=== PATIENT | male | born 1965 | race Caucasian/White ===

== ENCOUNTER 2016-12-17 16:21 | Inpatient (IN) | payer SELFPAY ==
[~2016-12-17] VITALS: Ht 170.2 cm; Wt 78.9 kg
[2016-12-17] VITALS (9 sets, daily range): BP systolic 134–182; BP diastolic 71–112; PULSE 65–80; RESP 16–18; TEMP 98.3–98.5; O2SAT 95–100
[~2016-12-17 16:21] MED LIST: NIFE1TAB85 PO
[2016-12-17] MEDS ORDERED: LISI-515 PO (16:31)
[2016-12-17] MEDS ORDERED: ASPI325T PO (16:46)
--- NOTE | 2016-12-17 16:51 | PD ---
HPI Chief Complaint: Chest Pain Time Seen by Provider: 16:36 Travel History International Travel<30 days: No Contact w/Intl Traveler<30days: No Traveled to known affect area: No History of Present Illness HPI 51-year-old male complains of chest pain. Patient states that he started having sharp burning pain substernally for the past 5 days. Patient states that the pain radiated to the left-sided neck and left arm. Patient denies any coughing congestion fever chills. Patient states that he had diaphoresis this morning. Patient denies any palpitation. Patient denies any history of CAD. Patient has history hypertension. Patient is a smoker. Patient has family history of heart disease. Patient drinks alcohol frequently during the week. Patient denies any headache. Patient denies any abdominal pain. Patient denies any nausea vomiting diarrhea. Patient took aspirin 325 mg, 2 tablet today prior coming to the emergency room. On a scale of 1-10 the pain is a 7. PFSH Past Medical History Heart Rhythm Problems: No Cancer: No Cardiovascular Problems: Yes (HTN) Chest Pain: No Congestive Heart Failure: No Diabetes: No Endocrine: No Genitourinary: No Hepatitis: No Hiatal Hernia: No Hypertension: Yes Immune Disorder: No Musculoskeletal: No Neurologic: No Psychiatric: No Reproductive: No Respiratory: No Immunizations Current: No Thyroid Disease: No Tetanus Vaccination: > 5 Years Influenza Vaccination: No Past Surgical History AICD: No Joint Replacement: No Pacemaker: No Other Surgery: Yes (hand surgery , left finger fx) Social History Alcohol Use: Yes (1 QUART LIQUOR/WEEKLY) Tobacco Use: Yes (1 PPD) Substance Use: No Allergies-Medications (Allergen,Severity, Reaction): Coded Allergies: No Known Allergies (Verified , 12/17/16) Reported Meds & Prescriptions Reported Meds & Active Scripts Active Reported Aspirin 325 Mg Tab 650 Mg PO ONCE Lisinopril 20 Mg Tab 20 Mg PO DAILY Review of Systems General / Constitutional: No: Fever Eyes: No: Visual changes HENT: No: Headaches Cardiovascular: Positive: Chest Pain or Discomfort Respiratory: No: Shortness of Breath Gastrointestinal: No: Abdominal Pain Genitourinary: No: Dysuria Musculoskeletal: No: Pain Skin: No Rash Neurologic: No: Weakness Psychiatric: No: Depression Endocrine: No: Polydipsia Hematologic/Lymphatic: No: Easy Bruising Physical Exam Narrative GENERAL: Well-nourished, well-developed patient. SKIN: Focused skin assessment warm/dry. HEAD: Normocephalic. EYES: No scleral icterus. No injection or drainage. NECK: Supple, trachea midline. No JVD or lymphadenopathy. CARDIOVASCULAR: Regular rate and rhythm without murmurs, gallops, or rubs. RESPIRATORY: Breath sounds equal bilaterally. No accessory muscle use. GASTROINTESTINAL: Abdomen soft, non-tender, nondistended. MUSCULOSKELETAL: No cyanosis, or edema. BACK: Nontender without obvious deformity. No CVA tenderness. Neurologic exam normal. Data Data Last Documented VS Vital Signs Date Time Temp Pulse Resp B/P Pulse Ox O2 Delivery O2 Flow Rate FiO2 12/17/16 18:37 65 16 158/95 97 Room Air 12/17/16 16:27 98.3 Orders Complete Blood Count With Diff (12/17/16 16:44) Comprehensive Metabolic Panel (12/17/16 16:44) Creatine Kinase (Cpk) (12/17/16 16:44) Troponin I (12/17/16 16:44) Prothrombin Time / Inr (Pt) (12/17/16 16:44) Act Partial Throm Time (Ptt) (12/17/16 16:44) Chest, Single Ap (12/17/16 16:44) Iv Access Insert/Monitor (12/17/16 16:44) Ecg Monitoring (12/17/16 16:44) Oximetry (12/17/16 16:44) Ct Pulmonary Angiogram (12/17/16 16:44) Iohexol 350 Inj (Omnipaque 350 Inj) (12/17/16 18:27) Labs Laboratory Tests Test 12/17/16 16:45 White Blood Count 9.4 TH/MM3 Red Blood Count 4.82 MIL/MM3 Hemoglobin 15.5 GM/DL Hematocrit 46.4 % Mean Corpuscular Volume 96.1 FL Mean Corpuscular Hemoglobin 32.1 PG Mean Corpuscular Hemoglobin 33.4 % Concent Red Cell Distribution Width 13.5 % Platelet Count 222 TH/MM3 Mean Platelet Volume 8.4 FL Neutrophils (%) (Auto) 67.8 % Lymphocytes (%) (Auto) 21.9 % Monocytes (%) (Auto) 7.7 % Eosinophils (%) (Auto) 2.3 % Basophils (%) (Auto) 0.3 % Neutrophils # (Auto) 6.4 TH/MM3 Lymphocytes # (Auto) 2.1 TH/MM3 Monocytes # (Auto) 0.7 TH/MM3 Eosinophils # (Auto) 0.2 TH/MM3 Basophils # (Auto) 0.0 TH/MM3 CBC Comment DIFF FINAL Differential Comment Prothrombin Time 10.1 SEC Prothromb Time International 0.9 RATIO Ratio Activated Partial 25.9 SEC Thromboplast Time Sodium Level 144 MEQ/L Potassium Level 3.5 MEQ/L Chloride Level 107 MEQ/L Carbon Dioxide Level 27.4 MEQ/L Anion Gap 10 MEQ/L Blood Urea Nitrogen 13 MG/DL Creatinine 1.20 MG/DL Estimat Glomerular Filtration 64 ML/MIN Rate Random Glucose 106 MG/DL Calcium Level 8.7 MG/DL Total Bilirubin 0.3 MG/DL Aspartate Amino Transf 20 U/L (AST/SGOT) Alanine Aminotransferase 40 U/L (ALT/SGPT) Alkaline Phosphatase 85 U/L Total Creatine Kinase 116 U/L Troponin I 0.05 NG/ML Total Protein 7.6 GM/DL Albumin 3.7 GM/DL MDM Medical Decision Making Medical Screen Exam Complete: Yes Emergency Medical Condition: Yes Interpretation(s) 1846 PM. EKG shows sinus rhythm nonspecific ST-T wave change. Last Impressions Chest X-Ray 12/17/16 1644 Signed Impressions: Service Date/Time: Saturday, December 17, 2016 17:10 - CONCLUSION: 1. No acute cardiopulmonary findings. Junior Mcbride MD [address] pulmonary angiogram negative for PE. CBC within normal limit. CMP within normal limit. Cardiac enzymes are normal. Differential Diagnosis Differential diagnosis including musculoskeletal, angina, AL, PE, pneumothorax. Narrative Course 51-year-old male with chest pain. Patient took aspirin this morning. Patient will be admitted to the chest pain center at [facility]. Diagnosis Primary Impression: Chest pain Qualified Code: R07.9 - Chest pain, unspecified type Admitting Information Admitting Physician Requests: Observation Santi Tariq MD Dec 17, 2016 16:51
[2016-12-17 17:07] LABS: AUTOMATED NEUTROPHIL # 6.4 TH/MM3 (1.8-7.7); BASOPHIL % 0.3 % (0.0-2.0); EOSINOPHIL # 0.2 TH/MM3 (0-0.4); EOSINOPHIL % 2.3 % (0.0-4.0); HEMATOCRIT 46.4 % (39.0-51.0); HEMO FLAGS DIFF FINAL; LYMPH % 21.9 % (9.0-44.0); LYMPHOCYTE # 2.1 TH/MM3 (1.0-4.8); MEAN CELL VOLUME 96.1 FL (80.0-100.0); MEAN CORPUSCULAR HEMOGLOBIN 32.1 PG (27.0-34.0); MEAN CORPUSCULAR HGB CONC 33.4 % (32.0-36.0); MONO % 7.7 % (0.0-8.0); NEUT % 67.8 % (16.0-70.0); PLATELET COUNT 222 TH/MM3 (150-450); RED BLOOD COUNT 4.82 MIL/MM3 (4.50-5.90); RED CELL DISTRIBUTION WIDTH 13.5 % (11.6-17.2); WHITE BLOOD COUNT 9.4 TH/MM3 (4.0-11.0)
--- NOTE | 2016-12-17 17:20 | RADHPO ---
EXAM DATE/TIME: 12/17/2016 17:10 [facility] COMPARISON: CHEST SINGLE AP, January 19, 2016, 22:30. INDICATIONS : Chest pain. MEDICAL HISTORY : Hypertension. SURGICAL HISTORY : None. ENCOUNTER: Initial ACUITY: 1 week PAIN SCORE: 1/10 LOCATION: Bilateral chest FINDINGS: A single view of the chest demonstrates the lungs to be symmetrically aerated without evidence of mas s, infiltrate or effusion. The cardiomediastinal contours are unremarkable. Osseous structures are intact. CONCLUSION: 1. No acute cardiopulmonary findings. Junior Mcbride MD on December 17, 2016 at 17:18 Board Certified Radiologist. This report was verified electronically.
[2016-12-17 17:37] LABS: CHLORIDE 107 MEQ/L (98-107); POTASSIUM 3.5 MEQ/L (3.5-5.1); SODIUM (NA) 144 MEQ/L (136-145)
[2016-12-17 17:40] LABS: ANION GAP 10 MEQ/L (5-15); BICARBONATE 27.4 MEQ/L (21.0-32.0)
[2016-12-17 17:41] LABS: BLOOD UREA NITROGEN 13 MG/DL (7-18)
[2016-12-17 17:42] LABS: APTT (PATIENT) 25.9 SEC (24.3-30.1); INTERNATIONAL NORMALIZED RATIO 0.9 RATIO; PROTHROMBIN TIME - PATIENT 10.1 SEC (9.8-11.6)
[2016-12-17 17:43] LABS: ALT (GPT) 40 U/L (12-78); AST (GOT) 20 U/L (15-37)
[2016-12-17 17:44] LABS: GLOMERULAR FILTRATION RATE 64 ML/MIN (>89)
[2016-12-17 17:45] LABS: TOTAL BILIRUBIN ADULT 0.3 MG/DL (0.2-1.0)
[2016-12-17 17:46] LABS: ALKALINE PHOSPHATASE 85 U/L (45-117); CREATINE KINASE 116 U/L (39-308)
[2016-12-17] MEDS ORDERED: IOHEXOL 350 MG/ML 10 ML VIAL (for RAD DIAG) IV ONE (18:27)
--- NOTE | 2016-12-17 18:41 | RADHPO ---
EXAM DATE/TIME: 12/17/2016 18:07 [facility] COMPARISON: No previous studies available for comparison. INDICATIONS : Left sided chest pain. IV CONTRAST: 71 cc Omnipaque 350 (iohexol) IV RADIATION DOSE: 15.04 CTDIvol (mGy) MEDICAL HISTORY : Cardiovascular disease. SURGICAL HISTORY : None. ENCOUNTER: Initial ACUITY: 1 day PAIN SCALE: 5/10 LOCATION: Left chest TECHNIQUE: Volumetric scanning of the chest was performed using a pulmonary embolism protocol MIP images were re constructed. Using automated exposure control and adjustment of the mA and/or kV according to patien t size, radiation dose was kept as low as reasonably achievable to obtain optimal diagnostic quality images. FINDINGS: The lungs are clear without infiltrate, nodule, or mass except for slight bibasilar atelectasis. The re is no pleural effusion. No appreciable pathological adenopathy is seen within the mediastinum. Th ere is no evidence for PE for technique. CONCLUSION: There is no evidence for PE for technique. Alison Ma MD on December 17, 2016 at 18:38 Board Certified Radiologist. This report was verified electronically.
[2016-12-17] MEDS ORDERED: NITROGLYCERIN 0.4 MG SL 25 TABS/BTL SL PRN (19:00)
[2016-12-17] MEDS ORDERED: ACETAMINOPHEN 500 MG CPLT PO PRN (19:00)
[2016-12-17] MEDS ORDERED: SODIUM CHLORIDE 0.9% FLUSH 10 ML FLUSH IV FLUSH PRN ×2 (19:00→19:30)
[2016-12-17] MEDS ORDERED: ONDANSETRON HCL 4 MG/2 ML VIAL IV PRN (19:00)
[2016-12-17] MEDS ORDERED: hydrALAZINE HCL 20 MG/ML VIAL IV PUSH ONE (20:00)
[2016-12-17] MEDS ORDERED: SODIUM CHLORIDE 0.9% FLUSH 10 ML FLUSH IV FLUSH SCH (21:00)
[2016-12-17 21:09] LABS: CREATINE KINASE 144 U/L (39-308)
[2016-12-17 21:22] LABS: CKMB 2.4 NG/ML (0.5-3.6)
[2016-12-17] MEDS: SODIUM CHLORIDE 0.9% FLUSH 10 ML FLUSH SCH (21:38)
[2016-12-17] MEDS ORDERED: HEPARIN-D5W INJ 250 ML IV SCH (22:00)
[2016-12-17 23:24] LABS: APTT (PATIENT) 25.5 SEC (24.3-30.1)
[2016-12-17 23:30] LABS: CREATINE KINASE 105 U/L (39-308)
[2016-12-18] VITALS (17 sets, daily range): BP systolic 133–166; BP diastolic 77–101; PULSE 61–84; RESP 16–20; TEMP 97.5–98.6; O2SAT 97–100
[2016-12-18] MEDS ORDERED: HEPARIN SODIUM - IV 10,000 UNITS/10 ML VIAL IV PRN ×2 (04:00)
[2016-12-18] MEDS ORDERED: CHLORHEXIDINE GLUCONATE 2 % 1 PACK (2 CLOTHS)(extra cloths) TOPICAL PRN (04:30)
[2016-12-18] MEDS: CHLORHEXIDINE GLUCONATE 2 % 1 PACK (2 CLOTHS)(taper/protocol) TOPICAL SCH (05:00)
--- NOTE | 2016-12-18 05:37 | HHI.HP ---
[facility]Staff Admission Diagnosis chest pain Diagnoses: (1) Non-ST elevation VT (NSTEMI) Chief Complaint: chest pain Travel History International Travel<30 Days: No Contact w/Intl Traveler <30 Da: No Traveled to Known Affected Are: No History of Present Illness Mr. De La O is a 51 year-old male with a history of tobacco abuse and hypertension who presented to the ER on 12/17/16 for evaluation of chest pain. He was initially admitted to the chest pain center in [place] but was transferred to [facility] hospital following second set of Troponin I showed elevation at 0.84 with acute nonspecific inferior and anteroseptal T-wave changes on second EKG. CT pulmonary angiogram was negative for PE. CXR was negative, He is seen in the ICU. He reports that he has been experiencing worsening intermittently occurring substernal chest pain for the last 3-4 days radiating down left arm accompanied by diaphoresis. Symptoms not accompanied by shortness of breath or nausea. Pain is described as a sharp pain. Denies any heart problems, diabetes, breathing problems, liver problems, kidney problems, blood clots, thyroid problems, or cancers. Denies any recent fevers, dizziness, abdominal pain, n/v/d, burning or pain with urination, or hematuria. . Review of Systems Except as stated in HPI: all other systems reviewed are Neg Past Family Social History Past Medical History Hypertension Tobacco abuse . Past Surgical History Left index finger surgical repair s/p traumatic injury . Reported Medications Reported Meds & Active Scripts Active Reported Aspirin 325 Mg Tab 650 Mg PO ONCE Lisinopril 20 Mg Tab 20 Mg PO DAILY . Allergies: Coded Allergies: No Known Allergies (Verified , 12/17/16) Active Ordered Medications Current Medications Iohexol (Omnipaque 350 Inj) 71 ml STK-MED ONCE IV Last administered on t 18:27; Start 12/17/16 at 18:27; Stop 12/17/16 at 18:28; Status DC Sodium Chloride (NS Flush) 2 ml UNSCH PRN IV FLUSH FLUSH AFTER USING IV ACCESS ; Start 12/17/16 at 19:00; Stop 12/17/16 at 19:37; Status DC Sodium Chloride (NS Flush) 2 ml BID IV FLUSH ; Start 12/17/16 at 21:00; Stop 12/17 at 21:00; Status DC Acetaminophen (Tylenol) 500 mg Q4H PRN PO HEADACHE; Start 12/17/16 at 19:00 Ondansetron HCl (Zofran Inj) 4 mg Q6H PRN IV NAUSEA; Start 12/17/16 at 19:00 Lisinopril (Prinivil) 20 mg DAILY PO ; Start 12/18/16 at 09:00 Nitroglycerin (Nitrostat Sl) 0.4 mg Q5M PRN SL CHEST PAIN; Start 12/17/16 at 19: 00 Sodium Chloride (NS Flush) 2 ml UNSCH PRN IV FLUSH FLUSH AFTER USING IV ACCESS ; Start 12/17/16 at 19:30 Sodium Chloride (NS Flush) 2 ml BID .XX Last administered on 12/17/16 21:38; Start 12/17/16 at 21:00 Hydralazine HCl (Apresoline Inj) 10 mg ONCE ONCE IV PUSH Last administered on 12/17/16 20:07; Start 12/17/16 at 20:00; Stop 12/17/16 at 20:01; Status DC Heparin Sodium (Porcine) (Heparin Inj) 5,000 units UNSCH PRN IV APTT LESS THAN 25; Start 12/18/16 at 04:00 Heparin Sodium (Porcine) 2500 units 2,500 units UNSCH PRN IV APTT 25 TO 39; Start 12/18/16 at 04:00 Heparin Sodium/ Dextrose (Heparin-D5W Inj) 250 ml @ 0 mls/hr TITRATE IV Last administered on 12/17/16 23:21; Start 12/17/16 at 22:00 Miscellaneous Information Patient in critical care unit? Ass... [id number] .XX ; Start 12/18/16 at 04:00 Chlorhexidine Gluconate (Chlorhexidine 2% Cloth) 3 pack DAILY@04 TOPICAL ; Start 12/18/16 at 04:00; Stop 12/22/16 at 04:01 Chlorhexidine Gluconate (Chlorhexidine 2% Cloth) 3 pack UNSCH PRN TOPICAL HYGIENIC CARE; Start 12/18/16 at 04:30; Stop 12/23/16 at 04:22 . Family History Family with a history of CAD; father with VT - cannot recall age this happened . Social History Smokes: 1 ppd Alcohol drinks 1 pint to a quart of liquor weekly Illicit Drugs: none . Physical Exam Vital Signs Vital Signs Date Time Temp Pulse Resp B/P Pulse Ox O2 Delivery O2 Flow Rate FiO2 12/18/16 02:15 98.4 88 16 156/84 97 Nasal Cannula 2 12/18/16 00:30 98.5 147/92 99 Nasal Cannula 2 12/17/16 22:00 98.5 66 140/82 99 Nasal Cannula 2 12/17/16 21:00 79 134/71 99 Nasal Cannula 12/17/16 20:16 70 166/94 100 Nasal Cannula 2 12/17/16 19:50 98.5 66 182/101 99 Room Air 12/17/16 19:10 67 15 99 12/17/16 18:56 97 12/17/16 18:37 65 16 158/95 97 Room Air 12/17/16 17:28 80 16 153/95 95 Room Air 12/17/16 16:35 16 96 Room Air 12/17/16 16:31 16 96 Room Air 12/17/16 16:27 98.3 80 18 180/112 98 Physical Exam GENERAL: This is a pleasant, well-nourished, well-developed patient, in no apparent distress. SKIN: No rashes, ecchymoses or lesions. Cool and dry. HEAD: Atraumatic. Normocephalic. EYES: No scleral icterus. No injection or drainage. ENT: Nose without bleeding, purulent drainage. NECK: Trachea midline. No JVD or lymphadenopathy. CARDIOVASCULAR: Regular rate and rhythm without murmurs, gallops, or rubs. RESPIRATORY: Clear to auscultation. Breath sounds equal bilaterally. No wheezes , rales, or rhonchi. GASTROINTESTINAL: Abdomen soft, non-tender, nondistended. No guarding. MUSCULOSKELETAL: Extremities without clubbing, cyanosis, or edema. No calf tenderness. NEUROLOGICAL: Awake and alert. Motor and sensory grossly within normal limits. Normal speech. . Laboratory Laboratory Tests Test 12/17/16 12/17/16 12/17/16 16:45 19:47 22:45 White Blood Count 9.4 Red Blood Count 4.82 Hemoglobin 15.5 Hematocrit 46.4 Mean Corpuscular Volume 96.1 Mean Corpuscular Hemoglobin 32.1 Mean Corpuscular Hemoglobin 33.4 Concent Red Cell Distribution Width 13.5 Platelet Count 222 Mean Platelet Volume 8.4 Neutrophils (%) (Auto) 67.8 Lymphocytes (%) (Auto) 21.9 Monocytes (%) (Auto) 7.7 Eosinophils (%) (Auto) 2.3 Basophils (%) (Auto) 0.3 Neutrophils # (Auto) 6.4 Lymphocytes # (Auto) 2.1 Monocytes # (Auto) 0.7 Eosinophils # (Auto) 0.2 Basophils # (Auto) 0.0 CBC Comment DIFF FINAL Differential Comment Prothrombin Time 10.1 Prothromb Time International 0.9 Ratio Activated Partial 25.9 25.5 Thromboplast Time Sodium Level 144 Potassium Level 3.5 Chloride Level 107 Carbon Dioxide Level 27.4 Anion Gap 10 Blood Urea Nitrogen 13 Creatinine 1.20 Estimat Glomerular Filtration 64 Rate Random Glucose 106 Calcium Level 8.7 Total Bilirubin 0.3 Aspartate Amino Transf 20 (AST/SGOT) Alanine Aminotransferase 40 (ALT/SGPT) Alkaline Phosphatase 85 Total Creatine Kinase 116 144 105 Troponin I 0.05 0.84 0.96 Total Protein 7.6 Albumin 3.7 Creatine Kinase MB 2.4 3.0 Result Diagram: 12/17/165 12/17/161644 Imaging Last Impressions Chest X-Ray 12/17/161643 Signed Impressions: Service Date/Time: Saturday, December 17, 2016 17:10 - CONCLUSION: 1. No acute cardiopulmonary findings. Junior Mcbride MD CT Angiography 12/17/161643 Signed Impressions: Service Date/Time: Saturday, December 17, 2016 18:07 - CONCLUSION: There is no evidence for PE for technique. K. Mc Ma MD . Assessment and Plan Problem List: (1) Non-ST elevation VT (NSTEMI) ICD Code: I21.4 Status: Acute (2) Hypertension ICD Code: I10 Status: Chronic (3) Tobacco abuse ICD Code: Z72.0 Status: Chronic Assessment and Plan NSTEMI - Troponin I resulted: 0.05, 0.84, 0.96 - Serial EKGs show non-specific ST-T changes in anterolateral and inferior leads - EKGs personally reviewed - Heparin gtt for anticoagulation - Nitroglycerin 0.4 mg sublingual q5mins prn chest pain - Consult cardiology Hypertensive Urgency - resume home lisinopril - Hydralazine 10 mg IV given x 1 dose with good response - Start low dose beta-chandu: Coreg 3.125 mg q12h p.o. with hold parameters Tobacco abuse - counseled regarding need for smoking cessation related to current diagnosis DVT prophylaxis - Heparin drip for now Written by Junie Maravilla, acting as scribe for Dr. James on 12/18/16 at 05:34. All or portions of this note were transcribed by scribe [Junie Maravilla]. I, Dr. Winnie James personally performed the history, physical exam, and medical decision making; and confirmed the accuracy of the information in the transcribed note. Authenticated by Dr. Winnie James on 12/18/16 at 05:34. . Discussed Condition With Patient, RN, ER physician . Physician Certification 2 Midnight Certification Type: Admission for Inpatient Services Order for Inpatient Services The services are ordered in accordance with Medicare regulations or non- Medicare payer requirements, as applicable. In the case of services not specified as inpatient-only, they are appropriately provided as inpatient services in accordance with the 2-midnight benchmark. Estimated LOS (days): 3 days is the estimated time the patient will need to remain in the hospital, assuming treatment plan goals are met and no additional complications. Post-Hospital Plan: [place] Junie Maravilla Dec 18, 2016 05:36 Winnie James MD Dec 18, 2016 07:31
[2016-12-18 06:47] LABS: APTT (PATIENT) 36.6 SEC (24.3-30.1)
[2016-12-18] MEDS: CARVEDILOL 3.125 MG TAB PO SCH ×2 (07:40→21:08)
[2016-12-18] MEDS: LISINOPRIL 10 MG TAB PO SCH (07:40)
[2016-12-18] MEDS: SODIUM CHLORIDE 0.9% FLUSH 10 ML FLUSH SCH ×2 (07:42→21:00)
--- NOTE | 2016-12-18 10:22 | MB ---
cc: EFRAIN SIMS DATE OF CONSULTATION 12/18/2016 DATE OF 1965 REASON FOR CONSULTATION [id number] [place]. HISTORY OF PRESENT ILLNESS 51-year-old male with past medical history significant for hypertension, smoker who presented to the hospital with left-sided chest discomfort, radiating to the left arm and associated with diaphoresis. He has rule in for OK. Troponin have been slowly trending up with a peak of 0.96. EKG shows T-wave inversions anterolaterally suggestive of ischemia. Cardiology has been consulted for further management and evaluation. Currently chest pain free and hemodynamically stable. REVIEW OF SYSTEMS Negative except for what is mentioned in the HPI. PAST MEDICAL HISTORY Hypertension HOME MEDICATIONS Lisinopril SOCIAL HISTORY Denies illicit drug use. Drinks socially Smoker. FAMILY HISTORY His mother had open heart surgery and her brother had a stent in place in the heart. ALLERGIES NO KNOWN DRUG ALLERGIES. PHYSICAL EXAMINATION VITAL SIGNS: Temperature 97, respiratory rate 20, heart rate 62, O2 sat 100% room air. GENERAL: An awake and oriented x3 in no acute distress. NECK: No JVD. No carotid bruits. HEART: Regular rate and rhythm. No murmurs, rubs or gallops. LUNGS: Clear to auscultation bilaterally. ABDOMEN: Obese. Positive bowel sounds, soft, nontender, nondistended. EXTREMITIES: No cyanosis or edema. Pulses throughout. DATA CBC and BMP are unremarkable. Troponin 0.05, 0.84 and 0.96. EKG sinus rhythm with T-wave inversions in the anterolateral leads. Chest x-ray unremarkable. Chest CTA unremarkable. ASSESSMENT/PLAN 51-year-old male with cardiac risk factors of hypertension, active smoking and family history who presents with a [id number] OK. JC score 3. Currently , he remains afebrile and hemodynamically stable chest pain-free. He has been started on carvedilol, heparin drip, lisinopril and p.r.n. nitroglycerin. Given the patient's symptoms and findings suggestive of coronary ischemia I think it is reasonable to take him to the cardiac m[facility] laborer for early invasive management. The risks and benefits of left heart cath/intervention including but not limited to neurovascular trauma, bleeding, infection, acute kidney injury, emergent bypass surgery, stroke and have been explained to the patient. The patient understands the risks and he is willing to proceed. RECOMMENDATIONS 1. Left heart cath today 2. Keep n.p.o. 3. Continue heparin and beta-blockers, emma inhibitors and Nitro PRN Thank you for the opportunity to take part in the care of this patient. Further therapy to be determined. MD AUREA Hsieh/MELVA /9:58 AM /10:16 AM [email or web address]
[2016-12-18] MEDS ORDERED: HEPARIN-NS/PF INJ 500 ML ONE ×2 (10:25→10:49)
[2016-12-18] MEDS ORDERED: HEPARIN SODIUM - IV 10,000 UNITS/10 ML VIAL ONE (10:34)
[2016-12-18] MEDS ORDERED: NITROGLYCERIN INJ 5 ML ONE (10:34)
[2016-12-18] MEDS ORDERED: MIDAZOLAM HCL 2 MG/2 ML VIAL ONE ×2 (10:34→10:45)
--- NOTE | 2016-12-18 11:06 | EKG ---
Date Performed: 12/17/2016 Time Performed: 16:23:36 PTAGE: 51 years EKG: Sinus rhythm rSr' No significant change. Normal ECG PREVIOUS TRACING : 01/19/2016 22.37 DOCTOR: Darlene Simons Interpretating Date/Time 12/18/2016 11:04:48
--- NOTE | 2016-12-18 11:06 | EKG ---
Date Performed: 12/17/2016 Time Performed: 19:42:28 PTAGE: 51 years EKG: Sinus bradycardia. rSr' Non-specific ST-T wave changes Compared to previous tracing, the pa tient is now bradycardic. Borderline ECG PREVIOUS TRACING : 12/17/2016 16.23 DOCTOR: Darlene Simons Interpretating Date/Time 12/18/2016 11:05:39
--- NOTE | 2016-12-18 11:08 | EKG ---
Date Performed: 12/17/2016 Time Performed: 21:56:00 PTAGE: 51 years EKG: Normal Sinus rhythm . rSr' Inverted anterolateral T waves, possibly secondary due to ischemia. Clinical correlation is re commended Compared to previous tracing, the patient has new lateral T wave inversions. Abnormal ECG NO PREVIOUS TRACING DOCTOR: Darlene Simons Interpretating Date/Time 12/18/2016 11:07:44
--- NOTE | 2016-12-18 11:10 | EKG ---
Date Performed: 12/17/2016 Time Performed: 22:57:12 PTAGE: 51 years EKG: Normal Sinus rhythm . rSr' Anterior T wave inversions, concerning for ischemia. No significant change. Abnormal ECG PREVIOUS TRACING : 12/17/2016 19.42 DOCTOR: Darlene Simons Interpretating Date/Time 12/18/2016 11:08:52
[2016-12-18] MEDS ORDERED: PRASUGREL 10 MG TAB ONE (11:15)
[2016-12-18] MEDS ORDERED: ONDANSETRON HCL 4 MG/2 ML VIAL IV PRN (11:30)
[2016-12-18] MEDS ORDERED: ATROPINE SULFATE 1 MG/ML VIAL IV PRN (11:30)
[2016-12-18] MEDS ORDERED: IOHEXOL 350 MG/ML 100 ML BTL (for Cath Lab) OTHER ONE (11:30)
[2016-12-18] MEDS ORDERED: MISC INFORMATION XX ONE (11:30)
[2016-12-18] MEDS: ASPIRIN 81 MG CHEW TAB PO SCH (12:01)
--- NOTE | 2016-12-18 12:08 | MA ---
cc: ALIVIAEFRAIN [place] DATE: 12/18/2016 DATE OF : 1965 PROCEDURE PERFORMED 1. Left heart catheterization 2. Selective right and left coronary angiography 3. Left ventriculogram. 4. Right common femoral artery angiography. 5. PCI/JOSE ROBERTO to mid-LAD INDICATION [id number] ND. DESCRIPTION OF PROCEDURE Consent signed. The patient was taken to the cardiac director of labor relations in fasting state. The right groin was prepped and draped in sterile fashion using 1% lidocaine for local anesthesia and a micropuncture kit is a 5-Kosovan sheath was inserted into the right common femoral artery right common femoral artery angiography was performed to confirm position of the sheath then selective right and left coronary angiography. Angiography was performed with a JR-4 and a JL-4 diagnostic catheters. Angiography was taken in multiple views. An angled pigtail was introduced over a wire to the left ventricle followed by pressure recordings, ventriculogram and pullback. We identified a significant 90 % obstruction/lesion in the mid left anterior descending. Explaining the patient 's presentation. For this we prepared to fix. The 5-Kosovan sheath was exchanged to a 6-Kosovan sheath, IV heparin was given for anticoagulation. The left main was engaged with EBU 3.5 guide. The vessel was wired with [employer] scientific samurai wire, anchored distally in the LAD and then followed by direct stenting of the lesion with a drug-eluting stent 2.75 x 15. The stent was postdilated with a noncompliant 3.0 x 12 balloon to high atmospheres. Final angiographic views revealed good stent apposition and expansion with JC III flow. The patient tolerated the procedure well without complications. Estimated blood loss less than 50 cc, total contrast used was 100 cc. The right groin access site was closed with a Perclose device. Prasugrel loading was given after the procedure. RESULTS Left ventricle; The left ventricular pressure was 107/811 with an LVEDP of 12. The aortic pressure was 136/82 with a mean of 105. Left ventriculogram revealed a symmetric agustin ventricle with an estimated ejection fraction of 50%. ANGIOGRAPHY: 1. Right coronary artery dominant vessel has minimal luminal irregularities throughout and 30% lesion proximally. The right coronary artery is in the PDA which is patent with JC III flow and nonobstructive coronary artery disease. 2. The left main is widely patent with nonobstructive coronary artery disease. 3. The left anterior descending is a transapical vessel has significant 90% lesion to the mid segment. Diagonals are patent with JC III flow. 4. The left circumflex has minimal luminal irregularities throughout with and Nonobstructive coronary artery disease and JC III flow. He has a small OM1 branch OM1 and OM2 branches. CONCLUSION 1. Severe single vessel CAD status post successful PCI/JOSE ROBERTO to the mid-LAD in the setting of a NSTEMI. 2. Normal LV systolic function. RECOMMENDATIONS 1. Continue dual antiplatelet agent with aspirin and Prasugrel 2. Aggressive medical management for secondary prevention of CAD with beta- blockers, EVENS inhibitors, statins, 3. Therapeutic lifestyle changes, 4. Smoking cessation. 5. Post cath care 6. Encourage incentive spirometry and early ambulation MD AUREA Hsieh/lilibeth /11:25 AM /12:04 PM SYEDA
[2016-12-18] MEDS ORDERED: PRASUGREL 10 MG TAB PO ONE (13:00)
--- NOTE | 2016-12-18 15:41 | EC ---
Study Study Date:12/18/2016 STUDY CONCLUSIONS SUMMARY - Left ventricle: The cavity size was normal. Wall thickness was normal. Systolic function was normal. The estimated ejection fraction was in the range of 55% to 65%. Hypokinesis of the anteroseptal myocardium; consistent with ischemia in the distribution of the left anterior descending coronary artery. - Aortic valve: Valve area: 2.11cm^2 (Vmax). - Mitral valve: Mild regurgitation. - Tricuspid valve: Mild regurgitation. If LV function is below 40, please consider prescribing an ACEI or ARB or document rationale for non-use. PROCEDURE DATA STUDY STATUS: Elective. Procedure: Transthoracic echocardiography. Image quality was good. Scanning was performed from the parasternal, apical, and subcostal acoustic windows. Study completion: The patient tolerated the procedure well. Transthoracic echocardiography. M-mode, complete 2D, complete spectral Doppler, and color Doppler. Height: Height: 67in. Weight: Weight: 175.6lb. Body mass index: BMI: 27.6kg/m^2. Body surface area: BSA: 1.92m^2. Patient status: Inpatient. CARDIAC ANATOMY LEFT VENTRICLE: The cavity size was normal. Wall thickness was normal. Systolic function was normal. The estimated ejection fraction was in the range of 55% to 65%. Regional wall motion abnormalities: Hypokinesis of the anteroseptal myocardium; consistent with ischemia in the distribution of the left anterior descending coronary artery. AORTIC VALVE: Trileaflet; normal thickness leaflets. Doppler: Transvalvular velocity was within the normal range. There was no stenosis. No regurgitation. Valve area: 2.11cm^2 (Vmax). Indexed valve area: 1.1cm^2/m^2 (Vmax). AORTA: Aortic root: The aortic root was normal in size. MITRAL VALVE: Structurally normal valve. Doppler: Transvalvular velocity was within the normal range. There was no evidence for stenosis. Mild regurgitation. Valve area by pressure half-time: 2.78cm^2. Indexed valve area by pressure half-time: 1.45cm^2/m^2. LEFT ATRIUM: The atrium was normal in size. RIGHT VENTRICLE: The cavity size was normal. Wall thickness was normal. PULMONIC VALVE: Doppler: Transvalvular velocity was within the normal range. There was no evidence for stenosis. No regurgitation. TRICUSPID VALVE: Structurally normal valve. Doppler: Transvalvular velocity was within the normal range. Mild regurgitation. PULMONARY ARTERY: The main pulmonary artery was normal-sized. Systolic pressure was within the normal range. RIGHT ATRIUM: The atrium was normal in size. PERICARDIUM: There was no pericardial effusion. SYSTEMIC VEINS: Inferior vena cava: The vessel was normal in size. Patient weight: 175.6lb _Ejection fraction:_ 65-75% _Fractional shortening:_ 32% up to 5Kg 5-11.5Kg 11.6-22.9Kg 23-45Kg 45-57Kg Aortic Root 7-13 <17 13-22 17-27 17-27 LA diam 6-13 <23 24-38 33-47 37-40 RVID 10-17 7-15 7-15 7-18 8-17 LVIDd 12-22 <32 24-38 33-47 37-40 LVPW 2-4 3-6 5-7 6-8 7-8 IVS 2-4 3-6 5-7 6-8 7-8 BASIC MEASUREMENTS ADULT NORMAL Left ventricle LV internal dimension, ED, chordal *42.1 mm 43-52 level, PLAX LV internal dimension, ES, chordal 29.2 mm 23-38 level, PLAX Fractional shortening, chordal level, 31 % >29 PLAX LV posterior wall thickness, ED 12.3 mm IVS/LVPW ratio, ED 0.99 <1.3 Volume, ED, MOD, 1-plane 100 ml Volume, ES, MOD, 1-plane 42 ml Ejection fraction, MOD, 1-plane 58 % Stroke volume, MOD, 1-plane 58 ml Volume index, ED, MOD, 1-plane 52 ml/m^2 Volume index, ES, MOD, 1-plane 22 ml/m^2 Stroke index, MOD, 1-plane 30.2 ml/m^2 Ventricular septum Septal thickness, ED 12.2 mm Aortic valve Leaflet separation 21 mm 15-26 Aorta Root diameter, ED 34 mm Left atrium Anterior-posterior dimension 27 mm Anterior-posterior dimension index 1.41 cm/m^2 <2.2 Right ventricle RV internal dimension, ED, PLAX 22 mm 19-38 BASIC MEASUREMENTS ADULT NORMAL Aortic valve Leaflet separation 21 mm 15-26 Aorta Root diameter, ED 37 mm 20-37 DOPPLER MEASUREMENTS ADULT NORMAL Aortic valve Peak velocity, S 130 cm/s Valve area, Vmax 2.11 cm^2 Valve area index, Vmax 1.1 cm^2/m^2 Mitral valve Peak E-wave velocity 59.7 cm/s Peak A-wave velocity 82.4 cm/s Pressure half-time 79 ms Peak E/A ratio 0.7 Valve area, pressure half-time 2.78 cm^2 Valve area index, pressure half-time 1.45 cm^2/m^2 Pulmonic valve Peak velocity, S 103 cm/s LEGEND: Mean values are shown as u=mean value. Asterisk (*) shipman values outside specified normal range. Prepared and signed by Sherif Gamble [id number]
--- NOTE | 2016-12-18 18:36 | HHI.PR ---
Addendum to Inpatient Note Addendum Reason: Additional Documentation Additional Information Patient is sp cardiac catheterization with findings of single vessel disease sp PCI and stent placement. Vital signs stable. Patient denies cp/sob. AAOx3, lungs clear bilaterally, S1S2 RRR no MRG, abdomen soft, nontender. no edema in extremities. good pulses. Will transfer to [facility] when bed available. Dc pending cardiology clearance possibly in am. Marcel Roblero MD Dec 18, 2016 18:36
[2016-12-18] MEDS ORDERED: ATORVASTATIN 10 MG TAB PO SCH (21:00)
[2016-12-19] VITALS (17 sets, daily range): BP systolic 133–148; BP diastolic 92–98; PULSE 56–103; RESP 14–18; TEMP 97.9–98.7; O2SAT 93–98
[2016-12-19] MEDS: CHLORHEXIDINE GLUCONATE 2 % 1 PACK (2 CLOTHS)(taper/protocol) TOPICAL SCH (04:00)
[2016-12-19] MEDS: ASPIRIN 81 MG CHEW TAB PO SCH (08:29)
[2016-12-19] MEDS: CARVEDILOL 3.125 MG TAB PO SCH (08:29)
[2016-12-19] MEDS: LISINOPRIL 10 MG TAB PO SCH (08:29)
[2016-12-19] MEDS: SODIUM CHLORIDE 0.9% FLUSH 10 ML FLUSH SCH (08:31)
[2016-12-19] MEDS ORDERED: PRAS10TA PO (08:41)
[2016-12-19] MEDS ORDERED: LIPI10TA PO (08:41)
[2016-12-19] MEDS ORDERED: Aspirin Chew PO (08:41)
[2016-12-19] MEDS ORDERED: CARV3.125 PO (08:41)
[2016-12-19] MEDS ORDERED: LISI10TA3 PO (08:41)
--- NOTE | 2016-12-19 08:41 | HHI.DCPOC ---
Discharge Care Plan Diagnosis: (1) Non-ST elevation [place] (NSTEMI) (2) Chest pain (3) Tobacco abuse (4) Hypertension Goals to Promote Your Health * To prevent worsening of your condition and complications * To maintain your health at the optimal level Directions to Meet Your Goals Take your medications as prescribed Follow your dietary instruction Follow activity as directed Keep your appointments as scheduled Take your immunizations and boosters as scheduled If your symptoms worsen call your PCP, if no PCP go to Urgent Care Center or Emergency Room Smoking is Dangerous to Your Health. Avoid second hand smoke Call the 24-hour hour crisis hotline for domestic abuse at Marcel Roblero MD Dec 19, 2016 08:41
[2016-12-19] MEDS ORDERED: PRASUGREL 10 MG TAB PO SCH (09:00)
--- NOTE | 2016-12-19 09:34 | PD.CARD.PN ---
Subjective Subjective Remarks no complaints ambulating without difficulty Objective Medications Current Medications Medications (Trade) Dose Ordered Sig/Stella Route Start Time Stop Time Status Last Admin (Tylenol) 500 mg Q4H PRN PO 12/17/16 19:00 (Zofran Inj) 4 mg Q6H PRN IV 12/17/16 19:00 (Prinivil) 20 mg DAILY PO 12/18/16 09:00 12/19/16 08:29 (Nitrostat Sl) 0.4 mg Q5M PRN SL 12/17/16 19:00 (NS Flush) 2 ml UNSCH PRN IV FLUSH 12/17/16 19:30 (NS Flush) 2 ml BID .XX 12/17/16 21:00 12/19/16 08:31 Miscellaneous Information Patient in critical care unit? Ass... [id number] .XX 12/18/16 04:00 (Chlorhexidine 2% Cloth) 3 pack DAILY@04 TOPICAL 12/18/16 04:00 12/22/16 04:01 12/18/16 05:00 (Chlorhexidine 2% Cloth) 3 pack UNSCH PRN TOPICAL 12/18/16 04:30 12/23/16 04:22 (Coreg) 3.125 mg Q12HR PO 12/18/16 09:00 12/19/16 08:29 (Aspirin Chew) 81 mg DAILY PO 12/18/16 12:00 12/19/16 08:29 (Effient) 10 mg DAILY PO 12/19/16 09:00 12/19/16 08:29 (Atropine Inj) 0.5 mg UNSCH PRN IV 12/18/16 11:30 (Zofran Inj) 4 mg Q4H PRN IV 12/18/16 11:30 (Lipitor) 80 mg HS PO 12/18/16 21:00 12/18/16 21:08 Vital Signs / I&O Vital Signs Date Time Temp Pulse Resp B/P Pulse Ox O2 Delivery O2 Flow Rate FiO2 12/19/16 08:00 66 12/19/16 07:18 98.6 62 18 147/92 96 12/19/16 07:18 63 12/19/16 06:00 64 12/19/16 05:00 72 12/19/16 04:00 97.9 62 14 148/93 97 12/19/16 04:00 60 12/19/16 03:30 72 12/19/16 03:00 56 12/19/16 02:00 56 12/19/16 01:00 66 12/19/16 00:53 98 Nasal Cannula 2.00 12/19/16 00:00 66 12/18/16 23:53 73 12/18/16 23:00 84 12/18/16 22:02 98.0 12/18/16 22:00 70 12/18/16 21:55 68 16 161/101 100 12/18/16 20:00 98.6 67 18 139/81 98 12/18/16 16:00 97.5 66 20 133/77 97 12/18/16 12:00 97.7 63 20 136/81 98 I/O 12/18/16 12/18/16 12/18/16 12/19/16 12/19/16 12/19/16 07:00 15:00 23:00 07:00 15:00 23:00 Intake Total 66 ml 300 ml 240 ml Output Total 650 ml Balance 66 ml -350 ml 240 ml Intake Oral 300 ml 240 ml IV Total 66 ml 0 ml Output Urine Total 650 ml # Voids 2 # Bowel Movements 0 Physical Exam GENERAL: Well-nourished, well-developed patient. SKIN: Warm and dry. HEAD: Normocephalic. EYES: No scleral icterus. No injection or drainage. NECK: Supple, trachea midline. No JVD or lymphadenopathy. CARDIOVASCULAR: Regular rate and rhythm without murmurs, gallops, or rubs. RESPIRATORY: Breath sounds equal bilaterally. No accessory muscle use. GASTROINTESTINAL: Abdomen soft, non-tender, nondistended. EXTREMITIES: No cyanosis, or edema. NEUROLOGICAL: Awake, alert, and oriented x 3. Non-focal. Imaging Last Impressions Chest X-Ray 12/17/161643 Signed Impressions: Service Date/Time: Saturday, December 17, 2016 17:10 - CONCLUSION: 1. No acute cardiopulmonary findings. Junior Mcbride MD CT Angiography 12/17/161643 Signed Impressions: Service Date/Time: Saturday, December 17, 2016 18:07 - CONCLUSION: There is no evidence for PE for technique. K. Mc Ma MD Assessment and Plan Problem List: (1) Non-ST elevation [place] (NSTEMI) Assessment and Plan: s/p PCI/JOSE ROBERTO to LAD Chest pain free Ambulating without difficulty Cont DAPT with ASA and Prasugrel Cont BB, ACEi, statin Smoking Cessation Encourage ambulation and incentive spirometry Stable from the CV standpoint to be D/C home today (2) Chest pain (3) Hypertension (4) Tobacco abuse Problem Qualifiers (1) Chest pain: Qualified Code: R07.9 - Chest pain, unspecified type Sherif Gamble MD Dec 19, 2016 09:34
--- NOTE | 2016-12-19 13:25 | HHI.DS ---
Discharge Summary Admission Date Dec 17, 2016 at 22:00 Discharge Date: Dec 19, 2016 Admitting Diagnosis chest pain (1) Non-ST elevation [place] (NSTEMI) ICD Code: I21.4 Diagnosis: Principal (2) Hypertension ICD Code: I10 Diagnosis: Principal (3) Tobacco abuse ICD Code: Z72.0 Diagnosis: Principal Procedures Status post left heart catheterization on 12/18/16. Brief History - From Admission Mr. De La O is a 51 year-old male with a history of tobacco abuse and hypertension who presented to the ER on 12/17/16 for evaluation of chest pain. He was initially admitted to the chest pain center in [place] but was transferred to [facility] hospital following second set of Troponin I showed elevation at 0.84 with acute nonspecific inferior and anteroseptal T-wave changes on second EKG. CT pulmonary angiogram was negative for PE. CXR was negative, He is seen in the ICU. He reports that he has been experiencing worsening intermittently occurring substernal chest pain for the last 3-4 days radiating down left arm accompanied by diaphoresis. Symptoms not accompanied by shortness of breath or nausea. Pain is described as a sharp pain. Denies any heart problems, diabetes, breathing problems, liver problems, kidney problems, blood clots, thyroid problems, or cancers. Denies any recent fevers, dizziness, abdominal pain, n/v/d, burning or pain with urination, or hematuria. . CBC/BMP: 12/17/16 1645 12/17/16 1645 Significant Findings Laboratory Tests Test 12/17/16 12/17/16 12/17/16 12/18/16 16:45 19:47 22:45 06:21 Estimat Glomerular Filtration 64 ML/MIN (>89) Rate Troponin I 0.84 NG/ML 0.96 NG/ML (0.02-0.05) (0.02-0.05) Activated Partial 36.6 SEC Thromboplast Time (24.3-30.1) Imaging Last Impressions Chest X-Ray 12/17/16 1644 Signed Impressions: Service Date/Time: Dez, December 17, 2016 17:10 - CONCLUSION: 1. No acute cardiopulmonary findings. Junior Mcbride MD CT Angiography 12/17/16 [id number] Signed Impressions: Service Date/Time: Saturday, December 17, 2016 18:07 - CONCLUSION: There is no evidence for PE for technique. Alison Ma MD PE at Discharge GENERAL: SKIN: Warm and dry. HEAD: Normocephalic. EYES: No scleral icterus. No injection or drainage. NECK: Supple, trachea midline. No JVD or lymphadenopathy. CARDIOVASCULAR: Regular rate and rhythm without murmurs, gallops, or rubs. RESPIRATORY: Breath sounds equal bilaterally. No accessory muscle use. GASTROINTESTINAL: Abdomen soft, non-tender, nondistended. MUSCULOSKELETAL: No cyanosis, or edema. BACK: Nontender without obvious deformity. No CVA tenderness. Hospital Course The patient presented with chest pain and elevated cardiac enzymes. EKG on admission showed sinus rhythm at 80 bpm, T-wave inversion in lead 3, however no significant ST segment elevations or depressions observed. Chest x-ray showed no acute cardiopulmonary findings, CT was negative for PE. Patient enzymes increased from 0.05-0.8-0.9 which cardiology was consulted. The patient underwent left heart catheterization with selective right and left coronary angiography, left ventriculogram. Left catheterization showed severe single- vessel CAD status post successful PCI/JOSE ROBERTO to the mid LAD, with retrosternal chest pain. Patient also was found to have a normal LV function. Cardiology recommended to continue dual antiplatelet agents with aspirin and Effient. Aggressive management for secondary prevention of CAD with beta blockers, emma inhibitors and statins. Therapeutic left eye changes, smoking cessation. Incentive spirometry and early and ventilation were encouraged. Patient advised not to do any strenuous activity at least for the next week or until cleared by cardiology to do so. Pt Condition on Discharge: Stable Discharge Disposition: Discharge Home Discharge Time: <= 30 minutes Discharge Instructions DIET: Follow Instructions for: Heart Healthy Diet Activities you can perform: Regular-No Restrictions Activities to Avoid: Strenuous Activity Follow up Referrals: Cardiology - 2 Weeks with Sherif Gamble MD PCP Follow-up - 1 Week New Medications: Atorvastatin (Lipitor) 10 Mg Tab 80 MG PO HS cad #31 TAB Carvedilol (Coreg) 3.125 Mg Tab 3.125 MG PO Q12HR CAD #62 TAB Lisinopril (Lisinopril) 10 Mg Tab 20 MG PO DAILY Blood Pressure Management #31 TAB Prasugrel (Effient) 10 Mg Tab 10 MG PO DAILY cad #30 TAB ([Aspirin Chew]) 81 MG CHEW 81 MG PO DAILY cad #30 TAB.CHEW Discontinued Medications: Aspirin (Aspirin) 325 Mg Tab 650 MG PO ONCE #1 Ref 0 TAB Lisinopril (Lisinopril) 20 Mg Tab 20 MG PO DAILY #30 Ref 0 TAB Marcel Roblero MD Dec 19, 2016 13:25
[2017-01-01] MEDS ORDERED: LISI10TA3 PO ×2 (10:59→11:13)
[2017-01-01] MEDS ORDERED: PRAS10TA PO (11:13)
[2017-01-01] MEDS ORDERED: LIPI10TA PO (11:13)
[2017-01-01] MEDS ORDERED: CARV3.125 PO (11:13)
[2017-01-21] MEDS ORDERED: PLAV75TA29 PO (16:23)
== END 2016-12-19 13:40 | disposition home or self-care (01) | DRG 247 ==
LOC: PHED 16:21 → PHEDA 19:37 → OBSVTOIN 22:00 → HIMN 12-18 02:50 → HCIS 12-18 21:50
PROVIDERS: ADMIT Hospitalist; ATTEND Hospitalist
PROC: 4A023N7 Measurement of Cardiac Sampling and Pressure, Left Heart, Percutaneous Approach (ICD-10-PCS; 2016-12-18)
PROC: B2111ZZ Fluoroscopy of Multiple Coronary Arteries using Low Osmolar Contrast (ICD-10-PCS; 2016-12-18)
PROC: B2151ZZ Fluoroscopy of Left Heart using Low Osmolar Contrast (ICD-10-PCS; 2016-12-18)
PROC: B41F1ZZ Fluoroscopy of Right Lower Extremity Arteries using Low Osmolar Contrast (ICD-10-PCS; 2016-12-18)
PROC: 027034Z Dilation of Coronary Artery, One Artery with Drug-eluting Intraluminal Device, Percutaneous Approach (ICD-10-PCS; principal; 2016-12-18 09:45)
DX: I21.4 Non-ST elevation (NSTEMI) myocardial infarction (principal); I25.10 Atherosclerotic heart disease of native coronary artery without angina pectoris; I10 Essential (primary) hypertension; I16.0 Hypertensive urgency; F17.210 Nicotine dependence, cigarettes, uncomplicated; Z79.82 Long term (current) use of aspirin; Z82.49 Family history of ischemic heart disease and other diseases of the circulatory system
CPT/HCPCS: 71010; 71275; 80053; 82550; 82552; 84484; 85002; 85025; 85610; 85730; 87641; 92928; 93005; 93306; 93458; C1725; C1760; C1769; C1874; C1887; C1893; G0269; J0360; J1644; J2250; J3010; Q9967